=== PATIENT | female | born 1980 | race Caucasian/White ===

== ENCOUNTER 2017-02-05 01:00 | Inpatient (IN) | payer OTHER ==
[~2017-02-05] VITALS: Ht 152.4 cm; Wt 72.6 kg
--- NOTE | ~2017-02-05 | PA ---
Unit #: [id number] #: [id number] Patient: DESMOND SARMIENTO [id number] [place] [address] [id number] MR#: [id number] NAME: DESMOND SARMIENTO. ROOM: 73 Age: 36 Sex: F Admission Date: 02/05/2017 : 1980 Date of Assessment: 02/05/2017 Attending Physician: Nehemiah Virk M.D. Admitting Physician: Nehemiah Virk M.D. Primary Care Physician: Primary Care Physician No PSYCHIATRIC ASSESSMENT IDENTIFYING INFORMATION The patient is a 36-year-old white female admitted with a history of polysubstance dependence. INFORMANT(S) The patient, reliability is fair. CHIEF COMPLAINT I need to get off drugs. HISTORY OF PRESENT ILLNESS The patient is a 36-year-old white female with a history of polysubstance dependence including abuse of methamphetamine, heroin and Xanax and does admit to intravenous substance use. She was last treated at [facility] some time ago but states that she maintain sobriety for no significant period of time. She states that she is "now tired of feeling like. She lives with her grandparents and is employed at a local [employer]. She denies current suicidal or homicidal ideation or any psychotic symptoms. She denies recent changes in sleep or appetite and she does appear to be in significant discomfort during today's interview. PAST PSYCHIATRIC HISTORY As above. PAST MEDICAL HISTORY The patient has reportedly been prescribed antihypertensive medication in the past but is unaware of any of the medication and is not currently taking it. ALLERGIES Penicillin. FAMILY HISTORY Noncontributory SOCIAL HISTORY The patient lives with her grandparents. She is a high school graduate and works at a local [employer]. She reports substance use as noted previously. MENTAL STATUS EXAMINATION At this time reveals the patient to be a well-developed, well-nourished disheveled white female, appearing her stated age. Of note there are Unit #: [id number] #: [id number] Patient: DESMOND SARMIENTO multiple areas of excoriation of on the patient's face. She appears to be in significant physical distress related to opioid and benzodiazepine withdrawal. The patient is awake, alert and oriented in all spheres. Her mood is dysphoric. Her affect constricted. Speech is generally relevant and coherent. There are no gross deficits to memory or cognition noted. Intelligence is judged to be in the average range based on fund of knowledge. The patient is cooperative throughout the interview. She is currently denying suicidal or homicidal ideation. Denies any psychotic symptoms. Her judgement and insight appear to be reasonably intact. The patient's assets to be assessed. Liabilities lack of resources. DIAGNOSTIC IMPRESSION Methamphetamine use disorder, opioid use disorder, sedative hypnotic use disorder, hypertension by history. TREATMENT PLAN The patient remains hospitalized for safety and stabilization. A routine detoxification protocol has been initiated. ESTIMATED LENGTH OF STAY Five to seven days. I will ask the patient's public health social worker to see her regarding post discharge treatment options but she is feeling too ill today to discuss these with this physician. Dictated by... Nehemiah Virk M.D. HOLGER/melissa TD: 02/05/2017 22:05 JOB #: [id number] PSYCHIATRIC ASSESSMENT Page 1 of 1 X Nehemiah Virk MD X PSYCHIATRIC ASSESSMENT
--- NOTE | ~2017-02-05 | DS ---
Unit #: [id number] #: [id number] Patient: DESMOND SARMIENTO [id number] [facility] [address] [place] [address] [id number] MR#: [id number] NAME: DESMOND SARMIENTO. [facility] Age: 36 Sex: F Admission Date: 02/05/2017 : 1980 Discharge Date: 02/06/2017 Attending Physician: Nehemiah Virk M.D. Primary Care Physician: Primary Care Physician No DISCHARGE SUMMARY REASON FOR ADMISSION The patient is a 36-year-old white female, [facility] with a history of heroin and methamphetamine, and benzodiazepine abuse. HOSPITAL COURSE The [facility] and placed on a routine detoxification protocol for sedative hypnotics, and opioids. Her stay in the hospital was brief and uneventful and on 02/06 she requested discharge stating that she planned to go to "[facility]." As per her request discharge was ordered. DISCHARGE DIAGNOSES [place] I Methamphetamine use disorder. Opioid use disorder. Sedative/hypnotic use disorder. [place] II [place] III [place] IV [place] V DISPOSITION ON DISCHARGE The patient is discharged on no psychotropic or other medications. Follow up will take place through the auspices of [facility]. The patient's prognosis is considered fair. Dictated by... Nehemiah Virk M.D. CB/anamaria TD: 02/07/2017 05:19 JOB #: [id number] Unit #: [id number] #: [id number] Patient: DESMOND SARMIENTO DISCHARGE SUMMARY Page 1 of 1 X Nehemiah Virk MD X DISCHARGE SUMMARY
--- NOTE | ~2017-02-05 | HP ---
Unit #: [id number] #: [id number] Patient: GEORGINA SARMIENTO [id number] [place] [address] [id number] MR#: [id number] NAME: GEORGINA SARMIENTO. ROOM: 73 Age: 36 Sex: F Admission Date: 02/05/2017 : 1980 Attending Physician: Nehemiah Virk M.D. Admitting Physician: Nehemiah Virk M.D. Primary Care Physician: Primary Care Physician No HISTORY AND PHYSICAL HISTORY OF PRESENT ILLNESS Georgina is a 36-year-old female admitted on 02/05/2017 for detox from heroin, Xanax and meth. PAST MEDICAL HISTORY Hypertension. PAST SURGICAL HISTORY None documented. SOCIAL HISTORY He smokes one pack of cigarettes daily, binge alcohol use and daily use of heroin, Xanax and meth. She is currently single and living with her grandparents. FAMILY HISTORY Noncontributory. REVIEW OF SYSTEMS CONSTITUTIONAL: No fever or chills. HEENT: Denies any sore throat, ear pain or runny nose. CARDIOVASCULAR: Denies chest pain, irregular heart rhythm or palpitations. CHEST: Denies shortness of breath or cough. No hemoptysis. GASTROINTESTINAL: Denies nausea, vomiting, diarrhea or chronic constipation. ENDOCRINE: Denies history of increased thirst or urination. No recent significant weight loss or gain. GENITOURINARY: Denies dysuria, frequency, or hematuria. SKIN: Denies any rashes. HEMATOLOGIC: Denies history of increased bleeding or bruising. MUSCULOSKELETAL: Denies any hot, swollen joints. No generalized muscle pain. NEUROLOGIC: Denies problems with vision or speech. No frequent, severe headaches. No numbness, tingling or weakness in any extremities. Denies loss of bladder or bowel control. CURRENT MEDICATIONS None. ALLERGIES Penicillin. Unit #: [id number] #: [id number] Patient: GEORGINA SARMIENTO PHYSICAL EXAMINATION GENERAL: Alert, oriented, in no acute distress. VITAL SIGNS: Blood pressure 174/110, heart rate 82, respirations 18, temperature 97.6. HEIGHT: 5 foot 0 inches. WEIGHT: 160 pounds. SKIN: Warm and dry without rash or lesion. HEENT: Normocephalic. TMs not viewed. Oral and nasal passages clear. Conjunctivae clear. PERRLA. EOMs intact. NECK: Supple without lymphadenopathy or thyromegaly. HEART: Regular rate and rhythm without murmur. LUNGS: Clear. ABDOMEN: Soft, nontender, without masses or hepatosplenomegaly. : Not done. EXTREMITIES: No evidence of cyanosis, clubbing or edema. Moves all without focal deficit. NEUROLOGICAL: Grossly within normal limits. Cranial Nerves: II: Visual dias are intact. III, IV AND : Extraocular movements are intact. Pupils are equal, round and reactive to light. V: Facial sensation is grossly normal. VII: Facial movements and expression are normal. VIII: Auditory acuity grossly intact. IX, X: Uvula is midline. Phonation is normal. XI: Patient shrugs shoulders and turns head normally. XII: Tongue protrudes in the midline. Sensory and Motor Function: Sensory and motor sensation is grossly normal. Motor: moves all extremities well. Coordination: Gait is normal. Deep Tendon Reflexes: Intact. IMPRESSION 1. Psychiatric admission. 2. Hypertension. RECOMMENDATIONS Psychiatric, per psychiatrist. MEDICAL: I see no contraindications to participating in facility's activities. MEDICAL PROGNOSIS Good. MEDICAL CONDITION Stable. Dictated by... Viviana Ahuja/melissa TD: 02/06/2017 01:53 JOB #: [id number] Unit #: [id number] #: [id number] Patient: GEORGINA SARMIENTO HISTORY AND PHYSICAL Page 1 of 1 X SANAM ABBASI APRN X HISTORY AND PHYSICAL
[2017-02-05 09:59] LABS: BASOPHIL% 0.6 % (0-2.5); EOSINOPHIL# 0.2 X10e3 (0-0.7); EOSINOPHIL% 1.9 % (0.0-7.0); HEMATOCRIT 42.6 % (35.0-45.0); HEMOGLOBIN 14.5 gm/dL (12.0-16.0); LYMPHOCYTE# 2.1 X10e3 (1.0-3.5); LYMPHOCYTE% 24.1 % (17.0-45.0); MEAN CELL VOLUME 84.3 FL (83-96); MEAN CORPUSCULAR HEMOGLOBIN 28.7 PG (28-34); MEAN CORPUSCULAR HGB CONC 34.1 g/dL (30-36); MONOCYTE# 0.7 X10e3 (0-1.0); MONOCYTE% 8.3 % (3.0-12.0); NEUTROPHIL# 5.6 X10e3 (1.5-7.1); NEUTROPHIL% 65.1 % (40-75); PLATELET COUNT 230 X10e3 (140-420); RED BLOOD COUNT 5.05 X10e (3.90-5.30); RED CELL DISTRIBUTION WIDTH 13.1 % (11.0-15.5); WHITE BLOOD COUNT 8.7 X10e3 (4.0-10.5)
[2017-02-05 10:07] LABS: ALBUMIN SERUM 3.6 g/dL (3.5-5.0); BILIRUBIN,TOTAL 0.4 mg/dL (0.2-2.0); BUN/CREATININE RATIO 16.25; CALCIUM SERUM 8.9 mg/dL (8.4-10.2); CREATININE SERUM 0.8 mg/dL (0.6-1.4); GLOM FILT RATE Estimated 94.9 mL/min (>60); POTASSIUM 3.5 mmol/L (3.5-5.1); PROTEIN TOTAL SERUM 6.2 g/dL (6.0-8.3)
[2017-02-05 10:13] LABS: DIFF IND NO
[2017-02-06 09:58] LABS: URINE APPEARANCE CLEAR; URINE BILIRUBIN NEG (NEG); URINE BLOOD NEG (NEG); URINE COLOR YELLOW; URINE GLUCOSE NEG (NEG); URINE KETONE NEG (NEG); URINE LEUKOCYTE ESTERASE NEG (NEG); URINE NITRATE NEG (NEG); URINE PH 7.5 (5-8); URINE PROTEIN NEG (NEG); URINE SPECIFIC GRAVITY 1.008 (1.003-1.035); URINE UROBILINOGEN 0.2 MG/DL (NEG)
[2017-02-06 10:45] LABS: AMPHETAMINE POS (NEG); BARBITURATES NEG (NEG); BENZODIAZEPINES POS (NEG); COCAINE NEG (NEG); MARIJUANA NEG (NEG); OPIATES NEG (NEG); TRICYCLIC ANTIDEPRESSANTS NEG (NEG); U METHADONE NEG (NEG)
[2017-02-12 07:06] LABS: HA AB IGM (HEPPAN) Nonreactive (()); HB CORE AB IGM (HEPPAN) Nonreactive (Nonreactive); HB S AG (HEPPAN) Nonreactive (Nonreactive); HEP C AB (HEPPAN) Nonreactive (Nonreactive); HEP C AB SIGNAL TO CUTOFF 0.02 ratio (<1.00)
== END 2017-02-06 16:20 | DRG 897 ==
LOC: P1E 03:33
PROVIDERS: Specialist
DX: F15.10 Other stimulant abuse, uncomplicated (principal); F11.10 Opioid abuse, uncomplicated; I10 Essential (primary) hypertension; F13.10 Sedative, hypnotic or anxiolytic abuse, uncomplicated; Z88.0 Allergy status to penicillin; F17.210 Nicotine dependence, cigarettes, uncomplicated
CPT/HCPCS: 80053; 80074; 80307; 81003; 85025; 86592; 87806

== ENCOUNTER 2017-02-08 20:00 | Inpatient (IN) | payer OTHER ==
[~2017-02-08] VITALS: Ht 152.4 cm; Wt 68.0 kg
--- NOTE | ~2017-02-08 | HP ---
Unit #: [id number] #: [id number] Patient: DESMOND SARMIENTO [id number] [facility] [address] [place] [address] [id number] MR#: [id number] NAME: DESMOND SARMIENTO. ROOM: P176 Age: 36 Sex: F Admission Date: 02/08/2017 : 1980 Attending Physician: Nehemiah Virk M.D. Admitting Physician: Nehemiah Virk M.D. Primary Care Physician: Primary Care Physician No HISTORY AND PHYSICAL REASON FOR ADMISSION Acute psychiatric inpatient admission. HISTORY OF PRESENT ILLNESS The patient is a 36-year-old female, currently states that she is withdrawing from her heroin and methadone. She reports she does not feel safe while at home, increased her alcohol use was also noted. Denied any suicidal or homicidal ideations and requested help and thus was admitted for the same. PAST MEDICAL HISTORY Hypertension. CURRENT HOME MEDICATIONS None. FAMILY HISTORY Positive for substance abuse throughout family. SOCIAL HISTORY The patient is positive tobacco, alcohol as well as heroin use. REVIEW OF SYSTEMS Positive diarrhea, irritability, restlessness, insomnia. Otherwise reviewed and negative as per HPI. PHYSICAL EXAMINATION GENERAL: Awake, alert, oriented to person, place, and time. Well built, well nourished. Does not appear to be in any acute distress. VITAL SIGNS: Temperature 97.7, blood pressure 138/84, and respiratory rate 18. HEAD: Atraumatic. Normocephalic. EYES: Bilateral extraocular muscles are normal. Pupils equal, reactive to light and accommodation. Sclerae are normal. No jaundice. NECK: Neck is supple. No neck rigidity. No thyromegaly. No carotid bruit. No JVD. Oral mucosa is moist. CHEST: Bilateral vesicular breathing. Clear to auscultation. No basilar rales. CARDIOVASCULAR: S1 and S2 normal. No murmur, no gallop, no rub. ABDOMEN: Soft, nontender. No organomegaly. Bowel sounds are normal. No hernia, no masses, no rebound, no guarding. EXTREMITIES: No pitting edema. No calf tenderness. Extremity pulses, including dorsalis pedis, have good volume. Unit #: [id number] #: [id number] Patient: DESMOND SARMIENTO BACK: Normal spine curvature. No spine tenderness. No costovertebral angle tenderness. [employer]: Cranial nerves normal bilaterally. Motor function bilaterally symmetric and normal. Sensory system normal. SKIN: Warm and dry. INITIAL IMPRESSION Acute psychiatric inpatient admission. PLAN As per psychiatrist, medical condition is stable, medical prognosis fair. There are no medical contraindications to patient participating in activities while here at [facility]. Dictated by... Sita Ulloa M.D. VIVIAN/derrick TD: 02/09/2017 16:29 JOB #: [id number] HISTORY AND PHYSICAL Page 1 of 1 X Sita Ulloa MD X HISTORY AND PHYSICAL
--- NOTE | ~2017-02-08 | PN ---
Unit #: [id number] #: [id number] Patient: DESMOND SARMIENTO [id number] [facility] [address] [place] [address] [id number] MR#: [id number] NAME: DESMOND SARMIENTO. ROOM: 76 Age: 36 Sex: F Admission Date: 02/08/2017 : 1980 Attending Physician: Nehemiah Virk M.D. Admitting Physician: Nehemiah Virk M.D. Primary Care Physician: Primary Care Physician Bria MATUTE PROGRESS NOTES DATE 02/10/2017 DISCUSSION The patient is abed today and is gently but firmly confronted regarding her failure to attend group. She is continuing to complain of symptoms of withdrawal. Also, complaining of anxiety though she is noted to be sleeping soundly on approach by this physician. Sleep, hygiene is discussed with the patient but I will begin vistaril 50 mg q 6 hours p.r.n. anxiety. Dictated by... Nehemiah Virk M.D. CB/melissa TD: 02/10/2017 21:24 JOB #: [id number] JUJU PROGRESS NOTES Page 1 of 1 X Nehemiah Virk MD PROGRESS NOTE
--- NOTE | ~2017-02-08 | PA ---
Unit #: [id number] #: [id number] Patient: DESMOND SARMIENTO [id number] [place] [address] [id number] MR#: [id number] NAME: DESMOND SARMIENTO. ROOM: P176 Age: 36 Sex: F Admission Date: 02/08/2017 : 1980 Date of Assessment: 02/09/2017 Attending Physician: Nehemiah Virk M.D. Admitting Physician: Nehemiah Virk M.D. Primary Care Physician: Primary Care Physician No PSYCHIATRIC ASSESSMENT IDENTIFYING INFORMATION The patient is a 36-year-old white female just discharged from this facility on 02/07. She returns stating that she is withdrawing from heroin and meth. CHIEF COMPLAINT None given. INFORMANT(S) The patient, patient's reliability is fair. HISTORY OF PRESENT ILLNESS The patient is a 36-year-old white female just discharged from this facility one day prior to readmission. The patient had stated a plan to go to "[facility]" but reports that that facility was full and instead she began to use heroin and meth once again. The patient reported yesterday that she had also used Xanax and had been drinking bourbon. The patient was reporting positive suicidal ideation with a plan to overdose when seen yesterday. When seen today the patient continues to exhibit signs of withdrawal. It was the feeling of this physician that the patient had probably not fully detoxed at the time of her last discharge from this facility. For more complete history of present illness please refer to previously dictated notes. PAST PSYCHIATRIC HISTORY Reviewed no changes. PAST MEDICAL HISTORY Reviewed no changes. MEDICATIONS None. ALLERGIES Penicillin. FAMILY HISTORY Reviewed no changes. SOCIAL HISTORY Reviewed no changes. MENTAL STATUS EXAMINATION Unit #: [id number] #: [id number] Patient: DESMOND SARMIENTO At this time reveals the patient to be a disheveled white female appearing his stated age. She appears to be in moderate physical distress during evaluation. She is awake, alert and oriented in all spheres. Her mood is dysphoric. Her affect constricted. Speech is generally relevant and coherent. There are no gross deficits in memory or cognition noted. Intelligence is judged to be in the average range based on fund of knowledge. The patient is cooperative during interview. She is currently endorsing positive suicidal ideation. She denies homicidal ideation. She denies any psychotic symptoms. Her judgment and insight appear to be reasonably intact. The patient's assets to be assessed. Liabilities lack of resources. DIAGNOSTIC IMPRESSION Opioid use disorder, methamphetamine use disorder, alcohol induced disorder, a sedative hypnotic use disorder. TREATMENT PLAN The patient remains hospitalized for safety and stabilization. We have reinitiated a routine detoxification protocol for the patient and suicidal precautions remain in place. I will ask her social work program coordinator to see her regarding a more definite post discharge plan. ESTIMATED LENGTH OF STAY Three to four days. Dictated by... Nehemiah Virk M.D. HOLGER/melissa TD: 02/09/2017 22:36 JOB #: [id number] PSYCHIATRIC ASSESSMENT Page 1 of 1 X Nehemiah Virk MD X PSYCHIATRIC ASSESSMENT
--- NOTE | ~2017-02-08 | DS ---
Unit #: [id number] #: [id number] Patient: DESMOND ASRMIENTO [id number] [facility] [address] [place] [address] [id number] I MR#: [id number] NAME: DESMOND SARMIENTO. ROOM: 82 Age: 36 Sex: F Admission Date: 02/08/2017 : 1980 Discharge Date: 02/11/2017 Attending Physician: Nehemiah Virk M.D. Primary Care Physician: Primary Care Physician No DISCHARGE SUMMARY REASON FOR ADMISSION The patient is a 36-year-old white female readmitted to the [facility] unit after she had relapsed shortly after discharge. HOSPITAL COURSE The patient was admitted to the [facility] unit and placed on routine detoxification protocol and placed on suicide precautions. Detox protocols were not reordered as the patient had been out of the hospital for such a brief period of time. On 02/11, the patient requested discharge from the hospital claiming that she was going to [facility]. This physician later learned that the patient had attempted to get on the van in order to go to [place] with a male peer of whom she had met. It is clear that she did not comply with her stated plan to go to [facility] and readmission to the hospital within a short period of time is expected. FINAL DIAGNOSES 1. Methamphetamine use disorder 2. Opioid use disorder DISPOSITION ON DISCHARGE Please see above Dictated by... Nehemiah Virk M.D. CB/to TD: 02/12/2017 22:37 JOB #: [id number] Unit #: [id number] #: [id number] Patient: DESMOND SARMIENTO DISCHARGE SUMMARY Page 1 of 1 X Nehemiah Virk MD X DISCHARGE SUMMARY
[2017-02-09 10:57] LABS: BASOPHIL% 0.5 % (0-2.5); EOSINOPHIL# 0.2 X10e3 (0-0.7); HEMOGLOBIN 14.8 gm/dL (12.0-16.0); LYMPHOCYTE# 2.8 X10e3 (1.0-3.5); MEAN CELL VOLUME 84.1 FL (83-96); MEAN CORPUSCULAR HEMOGLOBIN 28.3 PG (28-34); MEAN CORPUSCULAR HGB CONC 33.6 g/dL (30-36); MONOCYTE# 0.7 X10e3 (0-1.0); MONOCYTE% 8.7 % (3.0-12.0); NEUTROPHIL# 4.6 X10e3 (1.5-7.1); NEUTROPHIL% 54.8 % (40-75); PLATELET COUNT 243 X10e3 (140-420); RED BLOOD COUNT 5.24 X10e (3.90-5.30); RED CELL DISTRIBUTION WIDTH 13.2 % (11.0-15.5); WHITE BLOOD COUNT 8.4 X10e3 (4.0-10.5)
[2017-02-09 11:06] LABS: DIFF IND NO
[2017-02-09 12:37] LABS: ALBUMIN SERUM 3.5 g/dL (3.5-5.0); BILIRUBIN,TOTAL 0.8 mg/dL (0.2-2.0); BUN/CREATININE RATIO 18.57; CALCIUM SERUM 9.1 mg/dL (8.4-10.2); CREATININE SERUM 0.7 mg/dL (0.6-1.4); GLOM FILT RATE Estimated 111.5 mL/min (>60); POTASSIUM 3.6 mmol/L (3.5-5.1); PROTEIN TOTAL SERUM 6.2 g/dL (6.0-8.3)
[2017-02-10 09:44] LABS: URINE APPEARANCE CLEAR; URINE BILIRUBIN NEG (NEG); URINE BLOOD NEG (NEG); URINE COLOR YELLOW; URINE GLUCOSE NEG (NEG); URINE KETONE NEG (NEG); URINE LEUKOCYTE ESTERASE NEG (NEG); URINE NITRATE NEG (NEG); URINE PH 7.5 (5-8); URINE PROTEIN NEG (NEG); URINE SPECIFIC GRAVITY 1.007 (1.003-1.035); URINE UROBILINOGEN 0.2 MG/DL (NEG)
[2017-02-10 10:00] LABS: AMPHETAMINE NEG (NEG); BARBITURATES NEG (NEG); BENZODIAZEPINES NEG (NEG); COCAINE NEG (NEG); MARIJUANA NEG (NEG); OPIATES POS (NEG); TRICYCLIC ANTIDEPRESSANTS NEG (NEG); U METHADONE NEG (NEG)
== END 2017-02-11 14:40 | DRG 897 ==
LOC: P1E 21:08
PROVIDERS: Specialist
PROC: HZ2ZZZZ Detoxification Services for Substance Abuse Treatment (ICD-10-PCS; principal; 2017-02-09)
DX: F11.10 Opioid abuse, uncomplicated (principal); F10.10 Alcohol abuse, uncomplicated; I10 Essential (primary) hypertension; F15.10 Other stimulant abuse, uncomplicated; F13.10 Sedative, hypnotic or anxiolytic abuse, uncomplicated
CPT/HCPCS: 80053; 80307; 81003; 84703; 85025